=== PATIENT | male | born 1985 | race African-American/Black ===

== ENCOUNTER → 2016-08-02 18:21 | Emergency (ER) | payer OTHER ==
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
[~2016-08-02 18:21] MED LIST: BACTRIM DS TABL1 TA1 PO; FLEXERIL10 MG PO; KEFLEX500 MG PO; LEVAQUIN PO; METRONIDAZOLE PO; NO MEDICATIONS; ORUDIS75 M1 PO; PROTONIX PO; VICODIN 5/1 TAB 5/50 PO
== END | disposition home or self-care (01) ==
LOC: CFTX 18:21
DX: S13.4XXA Sprain of ligaments of cervical spine, initial encounter (principal); S23.3XXA Sprain of ligaments of thoracic spine, initial encounter; S33.5XXA Sprain of ligaments of lumbar spine, initial encounter; F17.210 Nicotine dependence, cigarettes, uncomplicated; V49.40XA Driver injured in collision with unspecified motor vehicles in traffic accident, initial encounter; Y92.410 Unspecified street and highway as the place of occurrence of the external cause
CPT/HCPCS: 72040; 72072; 72100; 99284